=== PATIENT | male | born 2000 | race Caucasian/White ===

== ENCOUNTER 2018-08-14 17:00 | Emergency (ER) | payer MEDICAID, OTHER ==
[2018-08-14 17:25] VITALS: BP 125/64
--- NOTE | 2018-08-14 17:46 | ED ---
Skin Complaint - HPI Summary HPI Summary: 17 yr old male with the complaint of pain to the back of his RIGHT thigh and upper calf area. Onset one day ago. No rash yet. Pain is in the S2 dermatome , burning and sensitive to touch. No trauma or injuries. Not worse with ROM or use of leg. No swelling, bruising, fever or chills. No SOB. - History of Current Complaint Chief Complaint: UCLowerExtremity Time Seen by Provider: 08/14/18 17:30 Stated Complaint: PAIN BACK OF RIGHT LEG Pain Intensity: 6 - Allergy/Home Medications Allergies/Adverse Reactions: Allergies Allergy/AdvReac Type Severity Reaction Status Date / Time divalproex sodium Allergy Swelling Verified 08/14/18 17:22 [From Depakote] Home Medications: Home Medications Cholecalciferol (Vitamin D3) [Vitamin D3] 1,000 unit PO DAILY 08/14/18 [History Confirmed 08/14/18] Clobazam [Onfi] 20 mg PO BID 08/14/18 [History Confirmed 08/14/18] Levothyroxine TAB* [Synthroid TAB*] 50 mcg PO DAILY 08/14/18 [History Confirmed 08/14/18] Topiramate [Topiramate ER 200 mg cap] 200 mg PO BID 08/14/18 [History Confirmed 08/14/18] PMH/Surg Hx/FS Hx/Imm Hx Endocrine/Hematology History: Reports: Hx Thyroid Disease - HYPOTHYROID Infectious Disease History: No Infectious Disease History: Denies: Traveled Outside the [place] in Last 30 Days - Family History Known Family History: Positive: Other - unknown foster care - Social History Occupation: Student Alcohol Use: None Substance Use Type: Reports: None Smoking Status (MU): Never Smoked Tobacco Review of Systems Constitutional: Negative Positive: Other - pain skin back of right thigh, leg All Other Systems Reviewed And Are Negative: Yes Physical Exam Triage Information Reviewed: Yes Vital Signs On Initial Exam: Initial Vitals Temp Pulse Resp BP Pulse Ox 98.7 F 70 18 125/64 100 08/14/18 17:19 08/14/18 17:19 08/14/18 17:19 08/14/18 17:19 08/14/18 17:19 Vital Signs Reviewed: Yes Appearance: Positive: Well-Appearing, No Pain Distress Skin: Positive: Other - No rash, no bruise to the right posterior leg or thigh. Skin is sensitive to touch. Eyes: Positive: EOMI, ARNOL ENT: Positive: Normal ENT inspection Neck: Positive: Nontender Respiratory/Lung Sounds: Positive: Clear to Auscultation, Breath Sounds Present Cardiovascular: Positive: RRR. Negative: Murmur Abdomen Description: Positive: Nontender Musculoskeletal: Positive: Strength/ROM Intact Neurological: Positive: Sensory/Motor Intact, Alert, Oriented to Person Place, Time, CN Intact II-III, Normal Gait Psychiatric: Positive: Normal Diagnostics - Vital Signs Vital Signs Temp Pulse Resp BP Pulse Ox 08/14/18 17:19 98.7 F 70 18 125/64 100 - Laboratory Lab Statement: Any lab studies that have been ordered have been reviewed, and results considered in the medical decision making process. Course/Dx - Course Course Of Treatment: 17 yr old with possible early shingles prior to rash. Pain is in the dermatome. No neuro deficit,no back pain. Plan DC home on Valtrex. FU with PMD. - Diagnoses Provider Diagnoses: Shingles Discharge - Sign-Out/Discharge Documenting (check all that apply): Patient Departure All imaging exams completed and their final reports reviewed: No Studies - Discharge Plan Condition: Good Disposition: HOME Prescriptions: ValACYclovir (*) [Valtrex 1 GM(*)] 1 gm PO BID #14 tab Patient Education Materials: Shingles (ED) Referrals: Annie Vargas MD [Primary Care Provider] - 2 Days - Billing Disposition and Condition Condition: GOOD Disposition: Home
== END 2018-08-14 17:55 | disposition home or self-care (01) ==
LOC: UCCORT 17:00
DX: B02.9 Zoster without complications (principal); E03.9 Hypothyroidism, unspecified; Z88.8 Allergy status to other drugs, medicaments and biological substances; Z79.899 Other long term (current) drug therapy
CPT/HCPCS: 99202; G0463

== ENCOUNTER 2018-09-24 07:30 | Emergency (ER) | payer MEDICAID, OTHER ==
[2018-09-24 07:59] VITALS: BP 120/64
[2018-09-24] MEDS ORDERED: Ibuprofen TAB* 600 MG PO ONE (08:00)
[2018-09-24 08:13] LABS: Influenza A Molecular POSITIVE (Negative)
--- NOTE | 2018-09-24 08:44 | UC ---
FLU HPI - HPI Summary HPI Summary: 17-year-old male comes in with a chief complaint of 3 days of fever chills body ache headache and rhinorrhea and sputum production. Patient started improving a little bit yesterday. [id number] medications to help with symptoms. Today started feeling worse with more bodyaches and now his sputum is turned to yellow and green. He does have chest congestion no shortness of breath. His appetite is starting to improve. - History of Current Complaint Chief Complaint: UCRespiratory Stated Complaint: BODYACHES FEVER COUGH SORE THROAT Time Seen by Provider: 09/24/18 07:53 Pain Intensity: 8 - Allergy/Home Medications Allergies/Adverse Reactions: Allergies Allergy/AdvReac Type Severity Reaction Status Date / Time divalproex sodium Allergy Swelling Verified 09/24/18 07:42 [From Depakote] Home Medications: Home Medications Acetaminophen [Pain Relief] 1,000 mg PO PRN 09/24/18 [History] GuaiFENesin DM* [Robitussin DM*] 10 ml PO Q6H PRN 09/24/18 [History Confirmed ] Phenylephrine/Dm/Acetaminop/GG [Mucinex Fast-Max Severe C 1-37-259-325 mg] 12 tab PO PRN 09/24/18 [History] PMH/Surg Hx/FS Hx/Imm Hx Previously Healthy: Yes Neurological History: Seizures - Surgical History Surgical History: None - Family History Known Family History: Positive: Other - unknown foster care - Social History Alcohol Use: None Substance Use Type: None Smoking Status (MU): Never Smoked Tobacco Review of Systems All Other Systems Reviewed And Are Negative: Yes Constitutional: Positive: Fever, Chills, Fatigue Skin: Positive: Negative Eyes: Positive: Negative ENT: Positive: Sore Throat, Nasal Discharge, Sinus Congestion Respiratory: Positive: Cough Cardiovascular: Positive: Negative Gastrointestinal: Positive: Negative Motor: Positive: Negative Neurovascular: Positive: Negative Musculoskeletal: Positive: Myalgia Neurological: Positive: Negative Psychological: Positive: Negative Is Patient Immunocompromised?: No Physical Exam Triage Information Reviewed: Yes Appearance: No Pain Distress, Well-Nourished, Ill-Appearing - MILD Vital Signs: Initial Vital Signs Temp 102 F 09/24/18 07:47 Pulse 119 09/24/18 07:47 Resp 20 09/24/18 07:47 BP 120/64 09/24/18 07:47 Pulse Ox 100 09/24/18 07:47 Vital Signs Reviewed: Yes Eye Exam: Normal Eyes: Positive: Conjunctiva Clear ENT: Positive: Pharyngeal erythema, Nasal congestion, Nasal drainage, TMs normal Neck exam: Normal Neck: Positive: Supple Respiratory: Positive: Lungs clear, Normal breath sounds, No respiratory distress Cardiovascular: Positive: Tachycardia Musculoskeletal Exam: Normal Musculoskeletal: Positive: Strength Intact, ROM Intact Neurological Exam: Normal Neurological: Positive: Alert, Muscle Tone Normal Psychological Exam: Normal Psychological: Positive: Age Appropriate Behavior Skin Exam: Normal Flu Course/Dx - Course Course Of Treatment: DISCUSSED VIRAL VERSES BACTERIAL INFECTION AND THE ROLE OF ANTIBIOTICS. THE PATIENT WISHES TO BE ON ANTIBIOTICS AT THIS TIME. - Differential Dx/Diagnosis Provider Diagnosis: Influenza, Upper respiratory infection Discharge - Sign-Out/Discharge Documenting (check all that apply): Patient Departure All imaging exams completed and their final reports reviewed: No Studies - Discharge Plan Condition: Stable Disposition: HOME Prescriptions: Amoxicillin PO (*) [Amoxicillin 875 MG (*)] 875 mg PO BID #20 tab Patient Education Materials: Influenza (ED), Upper Respiratory Infection (ED) Referrals: Annie Vargas MD [Primary Care Provider] - Additional Instructions: FOLLOW UP WITH YOUR DOCTOR IF NOT COMPLETELY IMPROVED. GET RECHECKED FOR ANY WORSENING OF YOUR CONDITION OR QUESTIONS OR CONCERNS. - Billing Disposition and Condition Condition: STABLE Disposition: Home
== END 2018-09-24 08:53 | disposition home or self-care (01) ==
LOC: UCCORT 07:30
DX: J11.1 Influenza due to unidentified influenza virus with other respiratory manifestations (principal); J06.9 Acute upper respiratory infection, unspecified; Z88.8 Allergy status to other drugs, medicaments and biological substances
CPT/HCPCS: 87651; 99212; A9270-GY; G0463

== ENCOUNTER 2019-09-24 03:52 | Inpatient (IN) | payer OTHER ==
--- NOTE | 2019-09-24 03:58 | ED ---
Neurological HPI - HPI Summary HPI Summary: 18 y/o M brought in by EMS from [facility] c/o worsening epigastric pain rated 8/10 in severity, nausea/vomiting x9 and diarrhea, fever in the last 13 hours. Patient seen at [facility] earlier. Had flu test done at [place] which was negative. While at [facility], patient had a seizure. Had lumbar puncture done at [facility] with results pending at time of transfer. He received 325 mg Tylenol 0300 today. Symptoms aggravated by nothing. Symptoms alleviated by Tylenol. Medications reviewed. Allergies noted. Home Medications Medication Instructions Recorded Confirmed Type Cholecalciferol (Vitamin D3) 1,000 unit PO DAILY 08/14/18 08/14/18 History [Vitamin D3] Clobazam [Onfi] 20 mg PO BID 08/14/18 08/14/18 History Levothyroxine TAB* [Synthroid TAB*] 50 mcg PO DAILY 08/14/18 08/14/18 History Topiramate [Topiramate ER 200 mg 200 mg PO BID 08/14/18 08/14/18 History cap] Acetaminophen [Pain Relief] 1,000 mg PO PRN 09/24/18 History GuaiFENesin DM 100 mg/10 mg 10 ml PO Q6H PRN 09/24/18 09/24/18 History [Robitussin DM*] Phenylephrine/Dm/Acetaminop/GG 12 tab PO PRN 09/24/18 History [Mucinex Fast-Max Severe C 8-36-007-325 mg] Amoxicillin PO (*) [Amoxicillin 875 mg PO BID PRN 09/24/19 09/24/19 History 875 MG (*)] Levothyroxine Sodium 50 mcg PO DAILY 09/24/19 09/24/19 History - History of Current Complaint Stated Complaint: SEIZURES PER EMS Hx Obtained From: Patient Onset/Duration: Started hours ago, Still Present Pain Intensity: 8 Pain Scale Used: 0-10 Numeric Aggravating: Nothing Alleviating: Other - Tylenol - Allergy/Home Medications Allergies/Adverse Reactions: Allergies Allergy/AdvReac Type Severity Reaction Status Date / Time divalproex sodium Allergy Swelling Verified 09/24/19 04:19 [From Depakote] Home Medications: Home Medications Cholecalciferol (Vitamin D3) [Vitamin D3] 1,000 unit PO DAILY 08/14/18 [History Confirmed 09/24/19] Clobazam [Onfi] 20 mg PO BID 08/14/18 [History Confirmed 09/24/19] Levothyroxine TAB* [Synthroid TAB*] 50 mcg PO DAILY 08/14/18 [History Confirmed 09/24/19] Topiramate [Topiramate ER 200 mg cap] 200 mg PO BID 08/14/18 [History Confirmed 09/24/19] Acetaminophen [Pain Relief] 1,000 mg PO DAILY PRN 09/24/18 [History Confirmed ] GuaiFENesin DM 100 mg/10 mg [Robitussin DM 100 mg/10 mg in 5 ml] 10 ml PO Q6H PRN 09/24/18 [History Confirmed 09/24/19] Phenylephrine/Dm/Acetaminop/GG [Mucinex Fast-Max Sev Cold Cplt] 12 tab PO DAILY PRN 09/24/18 [History Confirmed 09/24/19] Levothyroxine Sodium 50 mcg PO DAILY 09/24/19 [History Confirmed 09/24/19] Acetaminophen TAB* [Tylenol TAB*] 650 mg PO Q4H PRN tab 09/27/19 [Rx] levETIRAcetam TAB* [Keppra TAB*] 500 mg PO BID 30 Days #60 tab 09/27/19 [Rx] PMH/Surg Hx/FS Hx/Imm Hx Endocrine/Hematology History: Reports: Hx Thyroid Disease - HYPOTHYROID Cardiovascular History: Denies: Hx Hypertension Neurological History: Reports: Hx Seizures - Family History Known Family History: Positive: Other - unknown foster care - Social History Alcohol Use: None Substance Use Type: Reports: None Hx Tobacco Use: No Smoking Status (MU): Never Smoked Tobacco Review of Systems Positive: Fever Positive: Abdominal Pain, Vomiting, Diarrhea, Nausea Neurological/Mental Status: Other - seizure All Other Systems Reviewed And Are Negative: Yes Physical Exam - Summary Physical Exam Summary: Appearance: Ill-appearing young male lying in stretcher in no acute distress Skin: Warm, dry, no obvious rash Eyes: sclera anicteric, no conjunctival pallor HENT: mucous membranes moist, pharynx appears normal Neck: Supple, nontender Respiratory: Clear to auscultation, no signs of respiratory distress Cardiovascular: Normal S1, S2. No murmurs. Normal distal pulses in tibial and radial bilaterally. Abdomen: Soft, mild generalized abdominal tenderness without peritoneal signs, normal active bowel sounds present Musculoskeletal: Normal, Strength/ROM Intact Neurological: A&Ox3, awake and alert, mentation is normal, speech is fluent and appropriate Psychiatric: affect is normal, does not appear anxious or depressed Triage Information Reviewed: Yes Vital Signs Reviewed: Yes Procedures - Sedation Patient Received Moderate/Deep Sedation with Procedure: No Diagnostics - Laboratory Result Diagrams: 09/25/19 05:05 09/25/19 05:05 Lab Statement: Any lab studies that have been ordered have been reviewed, and results considered in the medical decision making process. Course/Dx - Course Course Of Treatment: 18 y/o M coming from [facility] c/o worsening epigastric pain rated 8/10 in severity, nausea/vomiting x9 and diarrhea, fever in the last 13 hours. Had flu test done at [facility] which was negative. While at [facility] ER , patient had a seizure. Had lumbar puncture done at [facility] with results pending at time of transfer. Had CT ABD done which was normal. Labs done at [facility] showed elevated WBC. He received Ativan and 325 mg Tylenol prior to arrival. He is an ill-appearing young male lying in stretcher in no acute distress. He has mild generalized abdominal tenderness without peritoneal signs. Patient tested negative for influenza. In the ED course, the patient was given Tylenol. Spoke with Dr. Ramirez. He requests patient be started on Keppra. The hospitalist agrees to admit patient. The patient will be admitted to the hospitalist. - Diagnoses Provider Diagnoses: Febrile illness, Abdominal pain, Seizures - Physician Notifications Discussed Care Of Patient With: Jean Pierre Ramirez Time Discussed With Above Provider: 04:47 Instructed by Provider To: Admit As Inpatient Discharge ED - Sign-Out/Discharge Documenting (check all that apply): Patient Departure - Discharge Plan Condition: Stable Disposition: ADMITTED TO [facility] - Billing Disposition and Condition Condition: STABLE Disposition: Admitted to [facility] - Attestation Statements Document Initiated by Scribe: Yes Documenting Scribe: Sara Shannon Provider For Whom Scribe is Documenting (Include Credential): Justice Guzman MD Scribe Attestation: Sara Cobos, scribed for Justice Guzman MD on 09/28/19 at 2000. Scribe Documentation Reviewed: Yes Provider Attestation: The documentation as recorded by the scribe, Sara Shannon accurately reflects the service I personally performed and the decisions made by me, Justice Guzman MD Status of Myke Document: Viewed
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
[2019-09-24] MEDS ORDERED: Acetaminophen TAB* 325 MG PO ONE (04:33)
[2019-09-24] MEDS ORDERED: levETIRAcetam 1000MG IVPREMIX* 1,000 MG/100 ML BAG IVPB ONE (04:49)
[2019-09-24 05:00] LABS: Influenza A Molecular Negative (Negative); Influenza B Molecular Negative (Negative)
[2019-09-24] MEDS ORDERED: Acetaminophen TAB* 325 MG PO PRN (05:27)
[2019-09-24] MEDS ORDERED: GuaiFENesin DM 100 mg/10 mg in 5 ML UDC PO PRN (05:27)
[2019-09-24] MEDS ORDERED: [UNRECOGNIZED DRUG - OTHER] PO PRN (05:27)
[2019-09-24] MEDS ORDERED: Ondansetron INJ* 2 MG/ML VIAL IV PRN (05:38)
[2019-09-24] MEDS ORDERED: Levothyroxine TAB* 50 MCG TAB PO SCH (06:00)
[2019-09-24 07:23] LABS: ABS Lymphocytes 0.5 10^3/ul (1.0-4.8); ABS Monocytes 0.4 10^3/ul (0-0.8); Hematocrit 37 % (42-52); Hemoglobin 13.3 g/dL (14.0-18.0); Lymphocyte % 6.3 %; Mean Corpuscular HGB Conc 36 g/dL (31-36); Mean Corpuscular Hemoglobin 33 pg (27-31); Mean Corpuscular Volume 91 fL (80-94); Mean Platelet Volume 7.8 fL (7.4-10.4); Nucleated Red Blood Cells % 0.1; Platelet Count 155 10^3/uL (150-450); Red Blood Count 4.07 10^6 /uL (4.18-5.48); Red Cell Distribution Width 13 % (10-15); White Blood Count 7.9 10^3/uL (3.5-10.8)
[2019-09-24 07:43] LABS: BUN/Creatinine Ratio 18.8 (8-20); Calcium 7.5 mg/dL (8.6-10.3); EGFR African American 149.1 (>60); EGFR Non-African American 123.2 (>60); Magnesium 1.6 mg/dL (1.9-2.7); Potassium 3.1 mmol/L (3.5-5.0)
[2019-09-24] MEDS ORDERED: [UNRECOGNIZED DRUG - OTHER] PO PRN (08:42)
[2019-09-24] MEDS ORDERED: ACETAMINOP PO PRN (08:42)
[2019-09-24] MEDS ORDERED: PHENYLEPHRINE PO PRN (08:42)
[2019-09-24] MEDS ORDERED: TOPIRAMATE 200 MG PO SCH ×2 (09:00)
[2019-09-24] MEDS ORDERED: CHOLECALCIFEROL 1000 UNIT PO SCH (09:00)
[2019-09-24] MEDS ORDERED: CLOBAZAM 20 MG PO SCH ×2 (09:00)
[2019-09-24] MEDS ORDERED: Magnesium Sulfate 2 GM IV* 2 GM/50 ML BAG IVPB ONE (09:02)
[2019-09-24] MEDS: NS 0.9% 1000 ML** 1,000 ML IV SCH ×2 (09:49→17:29)
--- NOTE | 2019-09-24 10:31 | HP ---
HISTORY AND PHYSICAL: DATE OF ADMISSION: 09/24/19 HISTORY OF PRESENT ILLNESS: This is a 18-year-old male with past medical history significant for ADHD, epilepsy, anemia, delayed cognition, who is a transfer from [facility] with chief complaint of seizures while in the hospital over there. The parents requested for transfer because there is no neurology coverage over there in [place]. The chief complaint while they went to [place] was worsening epigastric pain rated at 8/10 in severity, nausea and vomiting, as well as diarrhea. There was also a history of fever in the last 18 hours. The patient seen at [facility] earlier, had flu test done, which was done. While at [facility], the patient had seizure, which was witnessed, it was tonic- clonic, had lumbar puncture done at [place] with the results pending at this time. Before transfer, he received Tylenol. Symptoms were aggravated by nothing and alleviated by nothing. It was said that he had 2 episodes of seizure and the child lives in a foster home. The operations intern said he is compliant with all his medications and a series of tests have already been done regarding the epilepsy and the current medication he is receiving now for the epilepsy is topiramate, which he listed at 200 mg in the morning and 225 mg in the evening as well as clobazam listed at 20 mg in the morning and 30 mg in the evening. The patient also has a history of hypothyroidism. The patient is a poor historian, is postictal at this time. Per the operations intern, the patient received about 6 L of IV fluid in [facility]. CT scan of the abdomen and a CT scan of the brain were all negative. So, there was no source of infection at this time. Per the transfer record from [facility], the patient has a temperature of 100.4 with heart rate of 125, respiratory rate 18, BP 117/97, with oxygen saturation at 95 and a reported pain of 8/10 as already stated. There was associated myalgia. Because of electrolyte and acidosis that was noted at [facility], the patient was thought to be appropriately transferred to a facility with Neurology/Oncology. PAST MEDICAL HISTORY: 1. ADHD. 2. Epilepsy. 3. Mental retardation. 4. Anemia. 5. Hypothyroidism. 6. Fractured nose. PAST SURGICAL HISTORY: Denied. The patient is with the foster parents. The foster parents said that he started living with them when he was 15 and they do not know much about his past surgical history at this time. HOME MEDICATIONS: As already stated: 1. Levothyroxine 50 mcg daily. 2. Topiramate 200 mg p.o. a.m., 225 mg p.o. p.m. 3. Clobazam 20 mg a.m., 30 mg p.m. 4. Tylenol as needed for pain and fever. 5. Robitussin as needed for cough. FAMILY HISTORY: The patient lives in a foster home, does not know anything about the family history. SOCIAL HISTORY: Lives in a foster home. There is no history of tobacco use, alcohol use, or illicit drug use. ALLERGIES: DIVALPROEX SODIUM. REVIEW OF SYSTEMS: Constitutional: Negative for fever now, but was reported to have had fever prior to presentation at [facility]. Eyes: Negative for redness. Ears, Nose and Throat: Negative for sore throat. Cardiovascular : Negative for chest pain. Skin: Negative for rash. Respiratory: Negative for cough. GI: Positive for abdominal pain, diarrhea, nausea, and vomiting. Nausea and vomiting and diarrhea started today and diffuse pain started today. : Negative for dysuria. Musculoskeletal: Positive for myalgias, negative for back pain. Body aches started today as well. Neurological: Negative for headache, but had seizure while in the ER at [facility]. Immunologic: Negative for hives. PHYSICAL EXAMINATION GENERAL APPEARANCE: Ill-appearing, young man lying down in bed, in no acute distress. VITAL SIGNS: Temperature 99.4, heart rate 89, respiratory rate 21, oxygen saturation 96, blood pressure 105/46. SKIN: Warm, dry, no obvious rash. EYES: Sclerae anicteric. No conjunctival pallor. HEENT: Mucous membranes moist. Pharynx appears normal. NECK: Supple and nontender. No thyromegaly. No lymphadenopathy palpated. RESPIRATORY: Clear to auscultation bilaterally. No signs of respiratory distress. CARDIOVASCULAR: Normal S1, S2. No murmurs. No friction. No rubs. Regular rate and rhythm. Normal distal pulses in the tibial and radial bilaterally. ABDOMEN: Soft, mild generalized abdominal tenderness without peritoneal signs. Normoactive bowel sounds present all four quadrants. No palpable mass. No guarding. MUSCULOSKELETAL: Normal strength with intact range of motion of all upper and lower extremities. NEUROLOGICAL: AOA x3. Awake and alert. Mentation is normal. Speech is fluent and appropriate. PSYCHIATRIC: Affect is normal. Does not appear to be anxious or depressed, with normal speech, but somewhat drowsy. LABORATORY FINDINGS: Negative for influenza A and B done here in the ER. WBC hematology and chemistry still awaiting results, but records from [facility] as already stated in the HPI. For completion sake, I repeat WBC 10.1, RBC 4.16, hemoglobin 12.9, hematocrit , platelets 182. Neutrophil percentage 91.1. Immature granulocytes 0.7. Absolute neutrophil count 9.21. Chemistries: Glucose 118, BUN 19, creatinine 0.9. Sodium 143, potassium 3.5, chloride 116, bicarb 21, anion gap 6, calcium 7.4, total protein 5.9, albumin 3.1, globulin 2.8, total bilirubin 0.7, AST 9, ALT 14, alkaline phosphatase 64. Lactic acid 9. Urinalysis unremarkable. Like I already stated, the patient received about 5 to 6 L of fluid at [place]. We will repeat chemistry, CBC, and lactic acid here while in admission and follow up. Like already stated in the HPI, CT abdomen and CT brain was unremarkable. ASSESSMENT AND PLAN: A 18-year-old male, a transfer from [place] ER with a witnessed seizure twice, went to the [place] ER due to worsening of epigastric pain, nausea, vomiting, and diarrhea, as well as fever with past medical history significant for epilepsy, MR, hypothyroidism, transferred to [facility] for a followup with Neurology due to witnessed seizure and there is no onco/neurology at [place]. The patient will be admitted accordingly to the medical floor with neurology consult in attendance. Admitting diagnoses of seizure, gastroenteritis, hypothyroidism. For the seizures, the patient has already been given 1000 mg IV Keppra and to be maintained with 500 mg Keppra p.o. b.i.d. The patient is to continue his regular anti-epileptic drugs; topiramate 200 mg a.m., 225 mg p.m.; clobazam 20 mg a.m., 30 mg p.m. Neurology consult to follow. There might be need for an EEG. For gastroenteritis, I think this could be viral in nature. The patient already received 5 to 6 L of fluid from the referring hospital. We will continue IV hydration, Zofran for nausea and vomiting, pain control, follow up with BNP, replete electrolytes as needed. There is no need for antibiotics at this time. For hypothyroidism, the patient is to continue his home meds of levothyroxine 50 mcg daily. Tylenol for fever as needed. Send in stool for C-diff PCR, stool and ova, and a stool culture. Additional home medications include vitamin D 1000 units daily. The patient is to continue this medication as well. Like I already stated, fluid and electrolytes will be repleted as needed. Code status is full code at this time. DVT prophylaxis: SCDs. The patient is ambulating well. TIME SPENT: Time spent on this admission was 60 minutes, half of which is spent in discussing with the patient and the foster parents the plan of care; the other half in examining and evaluating the patient. Thank you very much for the opportunity to partake in the care needs of this evan gentleman. [id number]/CPS #: [id number] LAYNE
[2019-09-24] MEDS: CLOBAZAM 10 MG PO SCH ×2 (10:45→21:51)
[2019-09-24] MEDS: levETIRAcetam TAB* 500 MG PO SCH ×2 (10:46→21:53)
[2019-09-24] MEDS: Cholecalciferol TAB* 1000 UNITS PO SCH (10:47)
[2019-09-24] MEDS: Levothyroxine TAB* 50 MCG TAB PO SCH (10:47)
--- NOTE | 2019-09-24 10:48 | PN ---
Subjective Date of Service: 09/24/19 Interval History: Patient was seen and examined at the bedside. Patient is drowsy but wakes to verbal stimulation. Denies chest pain or shortness of breath. Reports that on saturday afternoon he came home from school reports that he did not feel well, reports had nausea and later vomited and then started with diarrhea. Reports that he was unable to keep anything down so he presented to [facility] ER for evaluation. While in the ER patient had a tonic/ Clonic seizure and was sent to [facility] as [facility] did not have neurology available, Reports that he continue to have episodes of diarrhea, no further vomiting Spoke to the patient father on the phone today - pe electrical engineer reports that the patient has 1-2 seizures a month with treatment and he is currently taking topirimate 225 mg BID and klonopin 20 mg in the AM and 30 mg at HS. He reports that the patient has frequent headaches as well. 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 reports that he slept more than normal on Saturday than usual. Saturday he went to school and teacher reports that his activity level was less than normal and that at the end of the day needed help getting to the bus as he was feeling dizziness. Reports that the patient return home continued not to feel well, vomited upon returning home from school. Then c/o headache and felt warm, had another episode of vomiting and was taken to the ER for evaluation. 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 The pe electrical engineer reports that he was dx with FLU early this week as well. Able to turn neck side to side and chin to the chest- no Nuchal rigidity, does c /o headache. CHEST X RAY FROM [place] - SHOWED NO ACTIVE DISEASE. recieved CSF fluids results from [facility]: 09/24/2019 0243 csf GLUCOSE 71 CSF PROTEIN 42.1- NORMAL RANGE (15.0-45.0) TUBE 1 COLORLESS CLEAR CSF WBC'S -0 CSF RBC'S 128 TUBE 4 COLORLESS CLEAR CSF WBC'- 0 CSF RBC'S- 113 Family History: Unchanged from Admission Social History: Unchanged from Admission Past Medical History: Unchanged from Admission Objective Active Medications: Acetaminophen (Tylenol Tab*) 975 mg PO DAILY PRN PRN Reason: PAIN - MILD Cholecalciferol (Vitamin D Tab*) 1,000 units PO DAILY [facility] Clobazam (Onfi Tab(Nf)) 20 mg PO QAM [facility] Clobazam (Onfi Tab(Nf)) 30 mg PO 2100 [facility] Guaifenesin/Dextromethorphan (Robitussin Dm 100 Mg/10 Mg In 5 Ml) 10 ml PO Q6H PRN PRN Reason: COUGH Sodium Chloride (Ns 0.9% 1000 Ml) 1,000 mls @ 100 mls/hr IV PER RATE [facility] Last Admin: 09/24/19 09:49 Dose: 100 mls/hr Potassium Chloride (Potassium Chloride 20 Meq/100 Ml Ivpremix*) 20 meq in 100 mls @ 50 mls/hr IV Q2H [facility] Stop: 09/24/19 13:59 Levetiracetam (Keppra Tab*) 500 mg PO BID [facility] Levothyroxine Sodium (Synthroid Tab*) 50 mcg PO DAILY@0600 [facility] (Phenylephrine/Dm/Acetaminop/Gg [ Mucinex Fast-Max Sev Cold Cplt] 1 tab PO DAILY PRN PRN Reason: COUGH Ondansetron HCl (Zofran Inj*) 4 mg IV Q4H PRN PRN Reason: NAUSEA/VOMITING Topiramate (Topamax(*)) 200 mg PO QAM [facility] Topiramate (Topamax(*)) 200 mg PO 2100 [facility] Topiramate (Topamax(*)) 25 mg PO 2100 [facility] Vital Signs - 8 hr 09/24/19 09/24/19 09/24/19 03:53 03:59 04:01 Temperature 101.2 F Pulse Rate 116 114 Respiratory 20 Rate Blood Pressure 103/67 103/67 (mmHg) O2 Sat by Pulse 95 95 Oximetry 09/24/19 09/24/19 09/24/19 04:29 04:40 04:59 Temperature 101.6 F Pulse Rate 107 98 Respiratory 13 26 Rate Blood Pressure 101/44 105/50 (mmHg) O2 Sat by Pulse 95 95 Oximetry 09/24/19 09/24/19 09/24/19 05:01 05:29 05:55 Temperature 99.4 F Pulse Rate 98 90 Respiratory 28 26 Rate Blood Pressure 109/50 (mmHg) O2 Sat by Pulse 95 95 Oximetry 03/07/0309/24/19 09/24/19 05:59 06:01 06:29 Temperature Pulse Rate 90 89 91 Respiratory 21 21 23 Rate Blood Pressure 105/46 106/45 (mmHg) O2 Sat by Pulse 96 96 92 Oximetry 09/24/19 09/24/19 09/24/19 06:59 07:01 07:30 Temperature 99.6 F Pulse Rate 88 88 86 Respiratory 22 23 20 Rate Blood Pressure 107/45 105/44 (mmHg) O2 Sat by Pulse 96 96 96 Oximetry Oxygen Devices in Use Now: None Appearance: Pale young male, no acute distress Eyes: No Scleral Icterus Ears/Nose/Mouth/Throat: Clear Oropharnyx, Mucous Membranes Moist Neck: NL Appearance and Movements; NL JVP, Trachea Midline Respiratory: Symmetrical Chest Expansion and Respiratory Effort, Clear to Auscultation Cardiovascular: NL Sounds; No Murmurs; No JVD, No Edema Abdominal: - - flat, soft, BSx4, mild upper epigastric pain with palpation Extremities: No Edema Skin: No Rash or Ulcers Neurological: Alert and Oriented x 3 Nutrition: Taking PO's Result Diagrams: 09/24/19 07:17 09/24/19 07:17 Assess/Plan/Problems-Billing Assessment: Mr. John is a 18 y.o male with a pmhx significant for seizures, ADHD, and intellectual delay, that was transferred from [place] for neurology consult do to seizure while at [facility]. - Patient Problems (1) Fever Current Visit: Yes Status: Acute Code(s): R50.9 - FEVER, UNSPECIFIED SNOMED Code(s): 805093606 Comment: fever - cxr negative at [facility] - NO elevated WBC's, occasional cough - NO urine symptoms , UA from [facility] negative - lumbar puncture CSF fluids - no wbc's glucose and protein normal - throat culture from [place] - negative for strep - no clear source of infection at this time - will hold off on antibiotics at this time and continue with symptomatic treatment - continue IVF (2) Gastroenteritis Current Visit: Yes Status: Acute Code(s): K52.9 - NONINFECTIVE GASTROENTERITIS AND COLITIS, UNSPECIFIED SNOMED Code(s): 92606731 Comment: - c/o vomiting and diarrhea started yesterday - stool for O and P pending - will start clear liquid diet - IV NS for hydration - zofran as needed for nausea (3) Seizure Current Visit: Yes Status: Acute Code(s): R56.9 - UNSPECIFIED CONVULSIONS SNOMED Code(s): 85456110 Comment: continue home medications topirimate and klonopin - will obtain records from [facility] and PCP - Started on Keppra with loading dose 1000mg and now 500 mg po BID (4) ADHD Current Visit: Yes Status: Acute Comment: supportive care (5) DVT prophylaxis Current Visit: Yes Status: Acute Code(s): Z29.9 - ENCOUNTER FOR PROPHYLACTIC MEASURES, UNSPECIFIED SNOMED Code(s): 288710224 Comment: ambulation (6) Full code status Current Visit: Yes Status: Acute Code(s): Z78.9 - OTHER SPECIFIED HEALTH STATUS SNOMED Code(s): 046086533
[2019-09-24] MEDS: KCL 20 MEQ/100 ML IVPREMIX* 20 MEQ/100 ML BAG IV SCH ×2 (10:58→15:35)
[2019-09-24] MEDS ORDERED: NS 0.9% 1000 ML** 1,000 ML IV ONE (16:20)
[2019-09-24] MEDS ORDERED: Ibuprofen TAB* 400 MG PO ONE (20:19)
[2019-09-24] MEDS: Topiramate TAB(*) 25 MG PO SCH (21:53)
[2019-09-24] MEDS: Topiramate TAB(*) 100 MG PO SCH (21:54)
[2019-09-24] MEDS: Acetaminophen TAB* 325 MG PO PRN (22:21)
[2019-09-24 23:28] LABS: Influenza A Molecular Negative (Negative); Influenza B Molecular Negative (Negative)
[2019-09-24 23:29] LABS: C Reactive Protein 56.38 mg/L (<8.01)
[2019-09-25] MEDS: KCL 20 MEQ/100 ML IVPREMIX* 20 MEQ/100 ML BAG IV SCH ×2 (00:59→08:11)
[2019-09-25] MEDS: NS 0.9% 1000 ML** 1,000 ML IV SCH (04:15)
[2019-09-25] MEDS: Levothyroxine TAB* 50 MCG TAB PO SCH (05:15)
[2019-09-25 05:18] LABS: ABS Lymphocytes 1.2 10^3/ul (1.0-4.8); ABS Monocytes 0.8 10^3/ul (0-0.8); ABS Neutrophils 4.2 10^3/ul (1.5-7.7); Eosinophil % 0.5 %; Hematocrit 36 % (42-52); Hemoglobin 12.8 g/dL (14.0-18.0); Lymphocyte % 19.1 %; Mean Corpuscular HGB Conc 36 g/dL (31-36); Mean Corpuscular Hemoglobin 32 pg (27-31); Mean Corpuscular Volume 91 fL (80-94); Mean Platelet Volume 7.8 fL (7.4-10.4); Nucleated Red Blood Cells % 0.1; Platelet Count 148 10^3/uL (150-450); Red Blood Count 3.97 10^6 /uL (4.18-5.48); Red Cell Distribution Width 13 % (10-15); White Blood Count 6.2 10^3/uL (3.5-10.8)
[2019-09-25 05:34] LABS: BUN/Creatinine Ratio 8.3 (8-20); Calcium 7.6 mg/dL (8.6-10.3); EGFR African American 168.4 (>60); EGFR Non-African American 139.2 (>60); Magnesium 1.9 mg/dL (1.9-2.7)
[2019-09-25] MEDS: CLOBAZAM 10 MG PO SCH ×2 (09:49→20:30)
[2019-09-25] MEDS: Topiramate TAB(*) 100 MG PO SCH ×2 (09:49→20:30)
[2019-09-25] MEDS: levETIRAcetam TAB* 500 MG PO SCH ×2 (09:49→20:30)
[2019-09-25] MEDS: Cholecalciferol TAB* 1000 UNITS PO SCH (09:49)
--- NOTE | 2019-09-25 11:41 | PN ---
Subjective Date of Service: 09/25/19 Interval History: Nursing notes reviewed - patient with fever last night t max 103.6 afebrile since midnight. Reports that dizziness has resolved. Currently denies fever or chills. Denies chest pain or shortness of breath. Denies abd pain n/v/d. Tolerating clear liquids and crackers. C/o generalized body aches. denies headache at this time. Patient reports that he is not sexually active and does not use illicit drugs. Spoke to Dr. Wood last evening - will see the patient in consultation today. Family History: Unchanged from Admission Social History: Unchanged from Admission Past Medical History: Unchanged from Admission Objective Active Medications: Acetaminophen (Tylenol Tab*) 650 mg PO Q4H PRN PRN Reason: PAIN - MILD Last Admin: 09/24/19 22:21 Dose: 650 mg Cholecalciferol (Vitamin D Tab*) 1,000 units PO DAILY [facility] Last Admin: 09/25/19 09:49 Dose: 1,000 units Clobazam (Onfi Tab(Nf)) 20 mg PO QAM [facility] Last Admin: 09/25/19 09:49 Dose: 20 mg Clobazam (Onfi Tab(Nf)) 30 mg PO 2100 [facility] Last Admin: 09/24/19 21:51 Dose: 30 mg Sodium Chloride (Ns 0.9% 1000 Ml) 1,000 mls @ 100 mls/hr IV PER RATE [facility] Last Admin: 09/25/19 04:15 Dose: 100 mls/hr Levetiracetam (Keppra Tab*) 500 mg PO BID [facility] Last Admin: 09/25/19 09:49 Dose: 500 mg Levothyroxine Sodium (Synthroid Tab*) 50 mcg PO DAILY@0600 [facility] Last Admin: 09/25/19 05:15 Dose: 50 mcg Ondansetron HCl (Zofran Inj*) 4 mg IV Q4H PRN PRN Reason: NAUSEA/VOMITING Topiramate (Topamax(*)) 200 mg PO QAM [facility] Last Admin: 09/25/19 09:49 Dose: 200 mg Topiramate (Topamax(*)) 200 mg PO 2100 [facility] Last Admin: 09/24/19 21:54 Dose: 200 mg Topiramate (Topamax(*)) 25 mg PO 2100 [facility] Last Admin: 09/24/19 21:53 Dose: 25 mg Vital Signs - 8 hr 09/25/19 09/25/19 07:30 09:49 Temperature 98.2 F Pulse Rate 58 Respiratory 20 18 Rate Blood Pressure 94/49 (mmHg) O2 Sat by Pulse 99 Oximetry Oxygen Devices in Use Now: None Appearance: young male joby russell his hospital bed, alert , awake, no acute distress , color is pale. Eyes: No Scleral Icterus Ears/Nose/Mouth/Throat: Clear Oropharnyx, Mucous Membranes Moist Neck: NL Appearance and Movements; NL JVP, - - supple, no nuchal rigidity Respiratory: Symmetrical Chest Expansion and Respiratory Effort, Clear to Auscultation Cardiovascular: NL Sounds; No Murmurs; No JVD, No Edema Abdominal: NL Sounds; No Tenderness; No Distention Extremities: No Edema Skin: No Rash or Ulcers Neurological: Alert and Oriented x 3 Nutrition: Taking PO's Result Diagrams: 09/25/19 05:05 09/25/19 05:05 Microbiology and Other Data: Microbiology 09/24/19 09:36 Cryptosporidium/Giardia - Final Stool Neg Cryptosporidium/Giardia 09/24/19 21:45 Stool Gross Appearance - Final Stool Assess/Plan/Problems-Billing Assessment: Mr. John is a 18 y.o male with a pmhx significant for seizures, ADHD, and intellectual delay, that was transferred from [place] for neurology consult do to seizure while at [facility]. - Patient Problems (1) Fever Current Visit: Yes Status: Acute Code(s): R50.9 - FEVER, UNSPECIFIED SNOMED Code(s): 115990425 Comment: Patient with sepsis related to likely viral illness, evidence by tachycardia and tachypenia - given the fever of 103.6 last even ing i am going to cover him emperically with antibiotics until blood cultures clear.- will give 1 gram of ceftriaxone - cxr negative at [place], repeat chest x ray last night was also negative - NO elevated WBC's, occasional cough - NO urine symptoms , UA from [place] negative - lumbar puncture CSF fluids - no wbc's, glucose and protein normal - throat culture from [place] - negative for strep - no clear source of bacterial infection at this time - Will stop IVF - patient is tolerating clear liquids and diarrhea has stopped. (2) Gastroenteritis Current Visit: Yes Status: Acute Code(s): K52.9 - NONINFECTIVE GASTROENTERITIS AND COLITIS, UNSPECIFIED SNOMED Code(s): 20492586 Comment: - c/o vomiting and diarrhea - now resolved - stool for O and P pending - will advance diet to soft - stop IVF - zofran as needed for nausea (3) Seizure Current Visit: Yes Status: Acute Code(s): R56.9 - UNSPECIFIED CONVULSIONS SNOMED Code(s): 70295669 Comment: - likely related to fever and underlying illness continue home medications topirimate and klonopin - will obtain records from [place] [facility] and PCP - Started on Keppra with loading dose 1000mg and now 500 mg po BID - consult to neurology (4) ADHD Current Visit: Yes Status: Acute Comment: supportive care (5) DVT prophylaxis Current Visit: Yes Status: Acute Code(s): Z29.9 - ENCOUNTER FOR PROPHYLACTIC MEASURES, UNSPECIFIED SNOMED Code(s): 137758375 Comment: ambulation (6) Full code status Current Visit: Yes Status: Acute Code(s): Z78.9 - OTHER SPECIFIED HEALTH STATUS SNOMED Code(s): 963804319 Status and Disposition: inpatient - likely discharge in the AM
[2019-09-25] MEDS ORDERED: cefTRIAXone(*) 1 GM in NS 0.9% 50 ML* 50 ML IVPB SCH (12:30)
[2019-09-25] MEDS: Topiramate TAB(*) 25 MG PO SCH (20:31)
[2019-09-25] MEDS: Acetaminophen TAB* 325 MG PO PRN (20:33)
--- NOTE | 2019-09-25 22:56 | EEG ---
ELECTROENCEPHALOGRAPHY: DATE OF STUDY: 09/24/19 LOCATION: She is an inpatient. REFERRING PROVIDER: Celi Mariano NP CLINICAL PROBLEM: Possible seizure, nausea, vomiting, and fever. MEDICATIONS: Include: 1. Topiramate. 2. Levothyroxine. 3. Keppra. 4. Clobazam. 5. Tylenol. REPORT: This 19-channel EEG is remarkable for background rhythms consisting of a posterior alpha rhy thm at about 8 cycles per second, which is symmetric. Beta rhythms are fairly abundant and diffuse. There are few instances of bitemporal theta activity which is symmetric. Activation procedures are not attempted. The patient does not appear to sleep during the recording. There are no clinical vilma nts. There are no focal, lateralized, or epileptiform abnormalities. CLINICAL IMPRESSION: Normal awake EEG. [id number]/[facility] #: [id number]
[2019-09-26] MEDS: Levothyroxine TAB* 50 MCG TAB PO SCH (06:02)
[2019-09-26] MEDS: levETIRAcetam TAB* 500 MG PO SCH ×2 (09:25→20:43)
[2019-09-26] MEDS: Topiramate TAB(*) 100 MG PO SCH ×2 (09:25→20:43)
[2019-09-26] MEDS: CLOBAZAM 10 MG PO SCH ×2 (09:25→20:42)
[2019-09-26] MEDS: Cholecalciferol TAB* 1000 UNITS PO SCH (09:25)
--- NOTE | 2019-09-26 12:09 | PN ---
Subjective Date of Service: 09/26/19 Interval History: Patient seen today, awake, alert no fever or chills. Taking po well. no fever or chills. Was complaining of headache is improved now. taking po. no diarrhea and no bowel movement at all Past Medical History: Unchanged from Admission Objective Active Medications: Acetaminophen (Tylenol Tab*) 650 mg PO Q4H PRN PRN Reason: PAIN - MILD Last Admin: 09/25/19 20:33 Dose: 650 mg Cholecalciferol (Vitamin D Tab*) 1,000 units PO DAILY [facility] Last Admin: 09/26/19 09:25 Dose: 1,000 units Clobazam (Onfi Tab(Nf)) 20 mg PO QAM [facility] Last Admin: 09/26/19 09:25 Dose: 20 mg Clobazam (Onfi Tab(Nf)) 30 mg PO 2100 [facility] Last Admin: 09/25/19 20:30 Dose: 30 mg Ceftriaxone Sodium 1 gm/ (Sodium Chloride) 50 mls @ 100 mls/hr IVPB Q24H [facility] Last Admin: 09/25/19 13:28 Dose: 100 mls/hr Levetiracetam (Keppra Tab*) 500 mg PO BID [facility] Last Admin: 09/26/19 09:25 Dose: 500 mg Levothyroxine Sodium (Synthroid Tab*) 50 mcg PO DAILY@0600 [facility] Last Admin: 09/26/19 06:02 Dose: 50 mcg Ondansetron HCl (Zofran Inj*) 4 mg IV Q4H PRN PRN Reason: NAUSEA/VOMITING Topiramate (Topamax(*)) 200 mg PO QAM [facility] Last Admin: 09/26/19 09:25 Dose: 200 mg Topiramate (Topamax(*)) 200 mg PO 2100 [facility] Last Admin: 09/25/19 20:30 Dose: 200 mg Topiramate (Topamax(*)) 25 mg PO 2100 [facility] Last Admin: 09/25/19 20:31 Dose: 25 mg Vital Signs - 8 hr 09/26/19 09/26/19 09/26/19 07:15 08:00 09:25 Temperature 97.6 F Pulse Rate 60 Respiratory 20 16 16 Rate Blood Pressure 100/49 (mmHg) O2 Sat by Pulse 98 Oximetry Oxygen Devices in Use Now: None Appearance: awake alert oriented. no fever Eyes: No Scleral Icterus, - - EOMI Ears/Nose/Mouth/Throat: NL Teeth, Lips, Gums, Mucous Membranes Moist Neck: NL Appearance and Movements; NL JVP, Trachea Midline Respiratory: Symmetrical Chest Expansion and Respiratory Effort, Clear to Auscultation Cardiovascular: NL Sounds; No Murmurs; No JVD, No Edema Abdominal: NL Sounds; No Tenderness; No Distention Extremities: No Edema Neurological: Alert and Oriented x 3 Result Diagrams: 09/25/19 05:05 09/25/19 05:05 Microbiology and Other Data: Microbiology 09/24/19 09:36 Cryptosporidium/Giardia - Final Stool Neg Cryptosporidium/Giardia 09/24/19 21:45 Stool Gross Appearance - Final Stool Assess/Plan/Problems-Billing Assessment: Mr. John is a 18 y.o male with a pmhx significant for seizures, ADHD, and intellectual delay, that was transferred from [place] for neurology consult do to seizure while at [facility]. - Patient Problems (1) Seizure Current Visit: Yes Status: Acute Code(s): R56.9 - UNSPECIFIED CONVULSIONS SNOMED Code(s): 23851392 Comment: - likely triggered from low seizure treshold from his fever and underlying illness - continue home medications: topirimate and Clobazam - now on Keppra 500 mg po BID - EEG negative - Awaiting Formal consultation from neurology (2) Gastroenteritis Current Visit: Yes Status: Acute Code(s): K52.9 - NONINFECTIVE GASTROENTERITIS AND COLITIS, UNSPECIFIED SNOMED Code(s): 07583900 Comment: - His vomiting and diarrhea resolved - stool for O and P negative - tolerated diet well. Off IVF - Stool culture pending (3) Fever Current Visit: Yes Status: Acute Code(s): R50.9 - FEVER, UNSPECIFIED SNOMED Code(s): 757710767 Comment: - Patient with sepsis related to likely viral illness, evidence by tachycardia and tachypenia - blood cultures clear. As per Celi Mariano's documentations: " cxr negative at [place], repeat chest x ray last night was also negative; ... UA from [place] negative lumbar puncture CSF fluids - no wbc's, glucose and protein normal, throat culture from [place] - negative for strep" I will D/c his ceftriaxone (4) ADHD Current Visit: Yes Status: Acute Comment: - Hx of of ADHD. He is not on pharmacotherapy at this time. Continue supportive care (5) DVT prophylaxis Current Visit: Yes Status: Acute Code(s): Z29.9 - ENCOUNTER FOR PROPHYLACTIC MEASURES, UNSPECIFIED SNOMED Code(s): 090149660 Comment: ambulation Status and Disposition: inpatient - likely discharge in the AM
[2019-09-26] MEDS: Topiramate TAB(*) 25 MG PO SCH (20:43)
[2019-09-27] MEDS: Levothyroxine TAB* 50 MCG TAB PO SCH (05:57)
[2019-09-27] MEDS: Cholecalciferol TAB* 1000 UNITS PO SCH (10:17)
[2019-09-27] MEDS: levETIRAcetam TAB* 500 MG PO SCH (10:17)
[2019-09-27] MEDS: CLOBAZAM 10 MG PO SCH (10:17)
[2019-09-27] MEDS: Topiramate TAB(*) 100 MG PO SCH (10:18)
[2019-09-27 11:43] VITALS: BP 107/57
--- NOTE | 2019-09-27 17:29 | DS ---
CC: Dr. Annie Vargas * DISCHARGE SUMMARY: DATE OF ADMISSION: 09/24/19 DATE OF DISCHARGE: 09/27/19 FINAL DISCHARGE DIAGNOSES: 1. Fever, unknown etiology, likely due to viral illness. 2. Seizure with known prior history of epileptic seizure, probably triggered by the fever. 3. Nausea, vomiting, diarrhea, most likely secondary to gastroenteritis. 4. Hypothyroidism. HOSPITAL COURSE: The patient presented to [facility] as a transfer from [place] [facility] on the night of 09/24/19 after he presented to the emergency room at [place] with a temperature of 100.4, complaining of increased headache, body aches, nausea, vomiting, and diarrhea, all started the same day. There was questionable exposure to flu from his foster father. While in the emergency room in [place], the patient was in the process of going to a CAT scan, he developed tonic-clonic seizure which was aborted by giving benzodiazepine right in the emergency room and his white count was elevated at 19,000. He was pancultured and had a rapid strep negative. Flu swab was negative and CBC at that time revealed white count of 19,000 and lactic acid as high as 9. He was put in as a request to transfer to our facility from [place] ; however, transfer was deferred until lumbar puncture was performed prior to transferring him. Lumbar puncture was performed in [place] [facility]. I did review the fax with the result today, which was negative for any cell count. It was colorless, normal glucose and protein, and no wbc's. Meanwhile, he was covered with antibiotic with ceftriaxone. He had a temperature as high as 103. He was pancultured on admission and stool studies were sent in our facility, and his blood cultures so far as negative here for 2 days and his stool studies were unremarkable. The patient has been afebrile since admission. His chest x-ray shows no acute cardiopulmonary disease, which was done in the emergency room at [place]. CT of the brain shows no acute pathology. With negative lumbar puncture and our blood cultures negative and stool cultures so far negative, I elected the patient to be stable for discharge with negative cryptosporidium and giardia. Blood culture negative x2 days and his Shiga toxin the only thing is still pending, but there was no enteric pathogen isolated. The patient has been tolerating food well. He has been having some semi-formed stool. He was started on Keppra IV and consultation with Dr. Wood on admission was discussed. I have not seen a formal consultation from Neurology. I was able to connect with Dr. Wood today and it was under his impression that the Neuro consult was canceled. I reviewed the case with Dr. Wood and from my point of view, the patient from seizure point of view has been stable. I discussed the current regimen and we both agreed that at this time given his new seizure despite his current medication that adding Keppra to his regimen of Topamax and benzodiazepine is appropriate until he follows with his neurologist, Dr. Watts. I reviewed that plan with Dr. Wood who is in agreement and a prescription was provided for Keppra and I instructed the family to follow up with Dr. Watts. Regarding his fever, given his negative septic workup, I think it was probably gastroenteritis which triggered the seizures and nonetheless he was covered empirically for 4 days. I do not feel the benefit of additional antibiotic out of concern that can cause unnecessary C. diff risk, but the patient's family is to monitor his temperature and if he develops fever to report to the emergency room immediately. The patient has been complaining of headache, which is probably normal post lumbar puncture and we have been medicated that with Tylenol. PHYSICAL EXAMINATION: Vital Signs: Temperature 98.2, pulse 63, respiratory rate 16, satting 99%, blood pressures fluctuating 90/40s and 103/61. Generally , he is awake, alert; slow monotonic speech. Head: He does have small scalp abrasion over the frontal lobe midline, dry and scabbed. Lungs: Clear to auscultation. Cardiovascular: S1, S2. Regular rate and rhythm. Abdomen: Positive bowel sounds. Soft, nontender, nondistended. Extremities: No edema. Moving all extremities. Tolerating p.o., in no distress. DIAGNOSTIC STUDIES/LAB DATA: He had the following done at the outside facility : Chest x-ray was negative. UA negative from [place]. Lumbar puncture: CSF fluid with no wbc's, glucose and protein were normal. Throat culture and strep throat was negative. EEG was done at our facility was negative for seizure activity. [place] screen, influenza A and B are negative. Ova and parasite negative. Blood culture negative x2 days. Cryptosporidium and giardia negative. Shiga toxin is still pending. CBC: White count 6.2 on 09/25/19, otherwise unremarkable. Chemistry: Lactic acid is 0.6 on 09/24/19. Chemistry unremarkable on 09/25/19. DISCHARGE MEDICATIONS: 1. Keppra 500 mg p.o. twice a day, continue. 2. Tylenol 650 every 4 hours as needed. Continue home regimen: 1. Topamax ER 200 mg twice a day. 2. Levoxyl 50 mcg daily. 3. Clobazam 20 mg twice a day. 4. Vitamin D 1000 every day. 5. Robitussin DM 10 mL every 6 hours. 6. Mucinex. 7. Tylenol 1000 as needed. DISCHARGE INSTRUCTIONS: 1. Follow up with primary care, Dr. Annie Vargas, in 1 to 2 weeks. 2. The patient is to follow up with his neurologist, Dr. Watts, to call in 1 to 2 weeks post discharge. Take Keppra as recommended. 3. Return to the emergency room immediately for any fever or worsening nausea, vomiting, or diarrhea. DISCHARGE CONDITION: Stable DISCHARGE DISPOSITION: Home [id number]/[facility] #: [id number] [facility]
== END 2019-09-27 13:40 | disposition home or self-care (01) | DRG 723 ==
LOC: ED 03:52 → MED 05:38 → ED 07:30 → MED 18:27
PROVIDERS: ADMIT Family Medicine; ATTEND Internal Medicine
DX: B34.9 Viral infection, unspecified (principal); R50.9 Fever, unspecified; G40.409 Other generalized epilepsy and epileptic syndromes, not intractable, without status epilepticus; K52.9 Noninfective gastroenteritis and colitis, unspecified; E03.9 Hypothyroidism, unspecified; G97.1 Other reaction to spinal and lumbar puncture; F90.9 Attention-deficit hyperactivity disorder, unspecified type; F79 Unspecified intellectual disabilities; Z79.899 Other long term (current) drug therapy
CPT/HCPCS: 36415; 71045; 80048; 83605; 83735; 85025; 86140; 86308; 87040; 87045; 87046; 87077; 87177; 87209; 87328; 87329; 87899; 95816; 96365; 99284; A9270-GY; J0696; J1953; J3475; J3480